=== PATIENT | female | born 1975 ===

== ENCOUNTER → 2024-07-06 06:25 | Day surgery (SDC) | payer OTHER, SELFPAY | LOC: GI 06:25 | PROVIDERS: ATTENDING PHYSICIAN Internal Medicine Gastroenterology | DX: Z12.11 Encounter for screening for malignant neoplasm of colon (principal); Z86.010 Personal history of colon polyps; K62.5 Hemorrhage of anus and rectum; K64.0 First degree hemorrhoids; K62.89 Other specified diseases of anus and rectum; K62.1 Rectal polyp; D12.3 Benign neoplasm of transverse colon | CPT/HCPCS: 45385; 45380; 88305 ==